=== PATIENT | female | born 1975 | race Caucasian/White ===

== ENCOUNTER 2023-10-24 11:05 | Emergency (ER) | payer MEDICAID ==
[~2023-10-24] VITALS: Ht 160 cm; Wt 83.5 kg
[2023-10-24 11:15] VITALS: BP_SYST 161; PULSE 77; RESP 18; TEMP 98.3; O2SAT 95
[2023-10-24] MEDS ORDERED: METH-776 PO (11:44)
[2023-10-24] MEDS ORDERED: DICL50TA9 PO (11:45)
[2023-10-24 11:56] VITALS: BP_SYST 153; PULSE 77; RESP 18; TEMP 98.3; O2SAT 95
== END 2023-10-24 11:55 | disposition home or self-care (01) ==
LOC: SED 11:05
DX: M54.12 Radiculopathy, cervical region (principal); V89.0XXA Person injured in unspecified motor-vehicle accident, nontraffic, initial encounter; Y93.89 Activity, other specified; Y92.89 Other specified places as the place of occurrence of the external cause; Y99.8 Other external cause status
CPT/HCPCS: 99283